=== PATIENT | female | born 1965 | race Caucasian/White ===

== ENCOUNTER 2017-07-23 16:44 | Emergency (ER) | payer MEDICARE, OTHER ==
[2017-07-23 17:12] VITALS: BP 86/48
--- NOTE | 2017-07-23 17:44 | UC ---
Throat Pain/Nasal Barrera HPI - HPI Summary HPI Summary: ONE WEEK OF COUGH. NO CONGESTION. NO FEVER. NO ST. - History of Current Complaint Chief Complaint: UCRespiratory Stated Complaint: COUGH Time Seen by Provider: 07/23/17 17:20 Hx Obtained From: Patient, Family/Sole Filler Hx Last Menstrual Period: 08/03 Onset/Duration: Gradual Onset, Lasting Days Severity: Mild Cough: Nonproductive Associated Signs & Symptoms: Positive: Negative, Hoarseness - Epiglottits Risk Factors Epiglottis Risk Factors: Negative - Allergies/Home Medications Allergies/Adverse Reactions: Allergies Allergy/AdvReac Type Severity Reaction Status Date / Time No Known Allergies Allergy Verified 09/02/13 13:30 PMH/Surg Hx/FS Hx/Imm Hx Previously Healthy: Yes - Surgical History Surgical History: None - Family History Known Family History: Negative: Respiratory Disease - Social History Occupation: Works From/At Home Lives: With Family Alcohol Use: None Substance Use Type: None Smoking Status (MU): Never Smoked Tobacco Review of Systems Constitutional: Negative Skin: Negative Eyes: Negative ENT: Negative Respiratory: Cough Cardiovascular: Negative Gastrointestinal: Negative Genitourinary: Negative Motor: Negative Neurovascular: Negative Musculoskeletal: Negative Neurological: Negative Psychological: Negative Is Patient Immunocompromised?: No All Other Systems Reviewed And Are Negative: Yes Physical Exam Triage Information Reviewed: Yes Appearance: Well-Appearing, No Pain Distress, Well-Nourished, Thin Vital Signs: Initial Vital Signs Temp 99.5 F 07/23/17 17:10 Pulse 57 07/23/17 17:10 Resp 18 07/23/17 17:10 BP 86/48 07/23/17 17:10 Pulse Ox 99 07/23/17 17:10 Vital Signs Reviewed: Yes Eye Exam: Normal ENT Exam: Normal ENT: Positive: Normal ENT inspection, Pharynx normal, TMs normal Dental Exam: Normal Neck: Positive: Supple, Nontender, Enlarged Nodes @ - MILD ANTERIOR CERVICAL CHAIN. Negative: Nuchal Rigidity, Tenderness @ Respiratory Exam: Other - COUGH Respiratory: Positive: Chest non-tender, Lungs clear, Normal breath sounds, No respiratory distress, No accessory muscle use Cardiovascular Exam: Normal Cardiovascular: Positive: RRR, No Murmur, Pulses Normal, Brisk Capillary Refill Musculoskeletal Exam: Normal Neurological Exam: Normal Psychological Exam: Normal Psychological: Positive: Normal Response To Family Skin Exam: Normal Throat Pain/Nasal Course/Dx - Differential Dx/Diagnosis Differential Diagnosis/HQI/PQRI: Influenza, Laryngitis, Pharyngitis, URI Provider Diagnoses: UPPER RESPIRATORY INFECTION Discharge - Discharge Plan Condition: Stable Disposition: HOME Patient Education Materials: Upper Respiratory Infection (ED) Referrals: Sally Wilson MD [Primary Care Provider] -
== END 2017-07-23 17:54 | disposition home or self-care (01) ==
LOC: UCEAST 16:44
DX: J06.9 Acute upper respiratory infection, unspecified (principal)
CPT/HCPCS: 99211; G0463

== ENCOUNTER 2022-02-11 18:41 | Inpatient (IN) ==
[2022-02-11 19:19] LABS: ABS Eosinophils 0.3 10^3/ul (0-0.6); ABS Lymphocytes 1.2 10^3/ul (1.0-4.8); ABS Neutrophils 6.5 10^3/ul (1.5-7.7); Eosinophil % 2.9 %; Hematocrit 30 % (35-47); Hemoglobin 9.7 g/dL (12.0-16.0); Lymphocyte % 12.8 %; Mean Corpuscular HGB Conc 33 g/dL (31-36); Mean Corpuscular Hemoglobin 33 pg (27-31); Mean Corpuscular Volume 100 fL (80-97); Mean Platelet Volume 6.5 fL (7.4-10.4); Nucleated Red Blood Cells % 0.1; Platelet Count 415 10^3/uL (150-450); Red Blood Count 2.99 10^6 /uL (3.70-4.87); Red Cell Distribution Width 14 % (10-15)
[2022-02-11 19:32] LABS: INR 1.35 (0.86-1.15)
[2022-02-11 19:59] LABS: Albumin 2.6 g/dL (3.2-5.2); Albumin/Globulin Ratio 0.7 (1-3); Globulin 3.7 g/dL (2-4); Potassium 4.3 mmol/L (3.5-5.0); Total Bilirubin 0.7 mg/dL (0.2-1.0); Total Protein 6.3 g/dL (6.4-8.9); eGFR CKD-EPI 113.4 (>60)
[2022-02-11 20:32] LABS: C Reactive Protein 75.17 mg/L (<8.01)
[2022-02-11] MEDS ORDERED: Iohexol 350 (CONTRAST) 500 ML MDV IV ONE (20:42)
[2022-02-11] MEDS ORDERED: Droperidol 5 MG/2 ML 2 ML VIAL IV ONE (20:49)
[2022-02-11] MEDS ORDERED: Morphine 4 MG/ML VIAL (1 ml) IV ONE (20:49)
[2022-02-11] MEDS ORDERED: Morphine 4 MG/ML VIAL (1 ml) IV PRN (20:49)
[2022-02-11 21:51] LABS: High Sensitivity Troponin 1 Hr 8 pg/mL (<15)
[2022-02-11] MEDS ORDERED: NS 0.9% 1000 ml BAG 2,000 ML IV ONE (22:59)
[2022-02-11] MEDS ORDERED: fentaNYL 100 mcg/2 ml 50 MCG/ML VIAL ONE (23:42)
[2022-02-11] MEDS ORDERED: Midazolam 5 mg/5 ml VIAL 1 mg/ml 5 ml VIAL (5 mg) ONE (23:42)
[2022-02-11] MEDS ORDERED: Lidocaine 1% MPF 5 ML VIAL ONE (23:43)
[2022-02-11] MEDS ORDERED: Iohexol 300 (CONTRAST) 10 ML SDV ONE (23:56)
[2022-02-12 00:23] LABS: Magnesium 1.7 mg/dL (1.9-2.7); Phosphorus 2.9 mg/dL (2.5-5.0)
[2022-02-12] MEDS ORDERED: Magnesium Sulfate IV 3 GM in NS 0.9% 100 ml BAG 100 ML IVPB ONE (00:25)
[2022-02-12] MEDS ORDERED: Magnesium Sulfate 1 GM IV 1 GM/100 ML BAG IV ONE (01:00)
[2022-02-12] MEDS ORDERED: Magnesium Sulfate 2 GM IV (Premix) IVPB ONE (01:00)
[2022-02-12 01:02] LABS: TSH Ultra Thyroid Stim Horm 2.91 mcIU/mL (0.34-5.60)
[2022-02-12] MEDS ORDERED: Calcium Carb (TUMS) 500 mg CHEW TAB PO PRN (01:21)
[2022-02-12 02:13] LABS: Body Fluid Appearance Bloody; Body Fluid Source Pericardial Fluid
[2022-02-12 02:14] LABS: Body Fluid Color Red
[2022-02-12 02:31] LABS: Body Fluid WBC 44543 /mcL
[2022-02-12 03:38] LABS: Body Fluid Mono 4 %; Body Fluid Other Cells 6; Body Fluid Total Cells Counted 200
[2022-02-12 04:58] LABS: ABS Eosinophils 1.1 10^3/ul (0-0.6); ABS Lymphocytes 1.7 10^3/ul (1.0-4.8); ABS Monocytes 1.3 10^3/ul (0-0.8); ABS Neutrophils 6.3 10^3/ul (1.5-7.7); Eosinophil % 10.7 %; Hematocrit 27 % (35-47); Mean Corpuscular HGB Conc 33 g/dL (31-36); Mean Corpuscular Hemoglobin 33 pg (27-31); Mean Corpuscular Volume 100 fL (80-97); Mean Platelet Volume 6.4 fL (7.4-10.4); Platelet Count 381 10^3/uL (150-450); Red Blood Count 2.72 10^6 /uL (3.70-4.87); Red Cell Distribution Width 15 % (10-15); White Blood Count 10.4 10^3/uL (3.5-10.8)
[2022-02-12 05:29] LABS: Albumin 2.3 g/dL (3.2-5.2); Albumin/Globulin Ratio 0.7 (1-3); Calcium 7.6 mg/dL (8.6-10.3); Globulin 3.2 g/dL (2-4); Magnesium 2.6 mg/dL (1.9-2.7); Phosphorus 2.5 mg/dL (2.5-5.0); Potassium 3.9 mmol/L (3.5-5.0); Total Bilirubin 0.5 mg/dL (0.2-1.0); Total Protein 5.5 g/dL (6.4-8.9); eGFR CKD-EPI 115.4 (>60)
[2022-02-12] MEDS: Potassium Chlor 20 meq TAB.ER PO ONE ×2 (06:17→12:53)
[2022-02-12] MEDS ORDERED: Potassium Chloride LIQUID 20 MEQ/15 ML LIQUID PO ONE (06:22)
[2022-02-12] MEDS: prednisoLONE 1% OPHTH.SUSP 5 ML OPHTH.SUSP RIGHT EYE SCH ×4 (13:00→20:49)
[2022-02-13 04:43] LABS: Hematocrit 26 % (35-47); Hemoglobin 8.4 g/dL (12.0-16.0); Mean Corpuscular HGB Conc 32 g/dL (31-36); Mean Corpuscular Hemoglobin 32 pg (27-31); Mean Corpuscular Volume 100 fL (80-97); Mean Platelet Volume 6.2 fL (7.4-10.4); Platelet Count 356 10^3/uL (150-450); Red Blood Count 2.59 10^6 /uL (3.70-4.87); Red Cell Distribution Width 14 % (10-15)
[2022-02-13 04:50] LABS: INR 1.32 (0.86-1.15)
[2022-02-13 05:29] LABS: Calcium 7.8 mg/dL (8.6-10.3); Magnesium 1.8 mg/dL (1.9-2.7); Potassium 3.8 mmol/L (3.5-5.0); eGFR CKD-EPI 113.4 (>60)
[2022-02-13 05:42] LABS: ABS Eosinophils 2.5 10^3/ul (0-0.6); ABS Monocytes 0.9 10^3/ul (0-0.8); ABS Neutrophils 3.6 10^3/ul (1.5-7.7); Eosinophil % 27.6 %; Lymphocyte % 22.2 %
[2022-02-13] MEDS: prednisoLONE 1% OPHTH.SUSP 5 ML OPHTH.SUSP RIGHT EYE SCH ×4 (09:54→21:14)
[2022-02-13 11:43] LABS: Urine Appearance Cloudy; Urine Bilirubin Negative (Negative); Urine Blood 3+ (Negative); Urine Color Amber; Urine Glucose Negative (Negative); Urine Ketones Negative (Negative); Urine Nitrite Negative (Negative); Urine Protein 1+(30 mg/dL) (Negative); Urine Specific Gravity 1.025 (1.002-1.030); Urine Urobilinogen Positive (Negative)
[2022-02-13 11:48] LABS: Urine Bacteria 1+ (Absent); Urine Red Blood Cell 3+(>10/hpf) (Absent); Urine Squamous Epithelial Cell Present (Absent); Urine White Blood Cell 3+(>20/hpf) (Absent)
[2022-02-14 05:15] LABS: Hematocrit 27 % (35-47); Hemoglobin 8.9 g/dL (12.0-16.0); Mean Corpuscular HGB Conc 33 g/dL (31-36); Mean Corpuscular Hemoglobin 33 pg (27-31); Mean Corpuscular Volume 100 fL (80-97); Platelet Count 407 10^3/uL (150-450); Red Blood Count 2.72 10^6 /uL (3.70-4.87); Red Cell Distribution Width 14 % (10-15); White Blood Count 8.3 10^3/uL (3.5-10.8)
[2022-02-14 05:17] LABS: ABS Basophils 0.1 10^3/ul (0-0.2); ABS Eosinophils 2.4 10^3/ul (0-0.6); ABS Lymphocytes 2.6 10^3/ul (1.0-4.8); ABS Monocytes 0.4 10^3/ul (0-0.8); ABS Neutrophils 2.9 10^3/ul (1.5-7.7); Eosinophil % 28.2 %; Lymphocyte % 31.2 %
[2022-02-14 06:30] LABS: Calcium 8.1 mg/dL (8.6-10.3); Magnesium 1.8 mg/dL (1.9-2.7); Potassium 3.6 mmol/L (3.5-5.0); eGFR CKD-EPI 115.4 (>60)
[2022-02-14] MEDS ORDERED: Magnesium Sulfate IV 1GM/100ML 1 GM/100 ML BAG IV ONE (07:47)
[2022-02-14] MEDS: Potassium Chlor 20 meq TAB.ER PO ONE ×2 (08:48→10:42)
[2022-02-14] MEDS: prednisoLONE 1% OPHTH.SUSP 5 ML OPHTH.SUSP RIGHT EYE SCH ×4 (08:49→21:25)
[2022-02-14] MEDS ORDERED: KCL 20 MEQ/100 ML IVPREMIX 20 MEQ/100 ML BAG IV SCH (09:00)
[2022-02-14] MEDS: cefTRIAXone 1 gm/50 mL D5W 1 GM/50 ML BAG IV SCH ×2 (09:38→13:18)
[2022-02-14] MEDS ORDERED: Potassium Chloride LIQUID 20 MEQ/15 ML LIQUID PO ONE (10:35)
[2022-02-14 11:41] LABS: Glucose, BF < 2 mg/dL
[2022-02-14 12:51] LABS: Lactate Dehydrogenase, BF 1006 U/L
[2022-02-14 12:56] LABS: Total Protein, BF 5.6 g/dL
[2022-02-14] MEDS ORDERED: Furosemide 20 mg/2 ml IV VIAL IV SLOW PU ONE (20:19)
[2022-02-15 05:52] LABS: ABS Lymphocytes 2.6 10^3/ul (1.0-4.8); ABS Monocytes 0.5 10^3/ul (0-0.8); Eosinophil % 24.9 %; Hematocrit 29 % (35-47); Hemoglobin 9.4 g/dL (12.0-16.0); Lymphocyte % 31.9 %; Mean Corpuscular HGB Conc 33 g/dL (31-36); Mean Corpuscular Hemoglobin 33 pg (27-31); Mean Corpuscular Volume 100 fL (80-97); Nucleated Red Blood Cells % 0.1; Platelet Count 468 10^3/uL (150-450); Red Blood Count 2.88 10^6 /uL (3.70-4.87); Red Cell Distribution Width 14 % (10-15)
[2022-02-15 06:09] LABS: Anion Gap 7 mmol/L (2-11); Blood Urea Nitrogen 24 mg/dL (6-24); CO2 Carbon Dioxide 30 mmol/L (22-32); Chloride 104 mmol/L (101-111); Glucose 86 mg/dL (70-100); Magnesium 1.9 mg/dL (1.9-2.7); Potassium 3.6 mmol/L (3.5-5.0); Sodium 141 mmol/L (135-145)
[2022-02-15] MEDS ORDERED: Magnesium Sulfate 2 gm BAG 2 GM/50 ML BAG IVPB ONE (07:22)
[2022-02-15] MEDS: prednisoLONE 1% OPHTH.SUSP 5 ML OPHTH.SUSP RIGHT EYE SCH ×2 (08:51→12:06)
[2022-02-15 09:54] LABS: Folate 15.51 ng/mL (5.90-24.80)
[2022-02-15 09:55] LABS: Vitamin B12 > 1450 pg/mL (180-914)
[2022-02-15 11:34] VITALS: BP 90/63
[2022-02-15] MEDS ORDERED: Potassium Chlor 20 meq TAB.ER PO ONE (12:00)
[2022-02-16 09:39] LABS: Complement C3 78 mg/dL (75 - 175)
[2022-02-16 13:58] LABS: Cytomegalovirus IgG Antibody Negative (Negative)
[2022-02-17 12:41] LABS: TB1 Ag minus Nil Result 0.01 IU/mL; TB2 Ag minus Nil Result 0.02 IU/mL
[2022-02-17 13:01] LABS: QuantiferonTb Gold Plus Result Indeterminate (Negative)
== END 2022-02-15 14:00 | disposition home health service (06) | DRG 315 ==
LOC: ED 18:41 → CHICATH 02-12 00:48 → SUATTDRO 02-12 00:49 → ICU 02-12 00:49 → MEDTELE 02-14 20:56
PROVIDERS: ADMIT Internal Medicine; ATTEND Internal Medicine